=== PATIENT | female | born 1985 | race Caucasian/White ===

== ENCOUNTER 2017-06-03 14:45 | Inpatient (IN) | payer OTHER ==
[~2017-06-03] VITALS: Ht 160 cm; Wt 94.8 kg
--- NOTE | ~2017-06-03 | HP ---
History And Physical [id number] [place]. [address] NAME: HEMANT ANGELES : 87 STATUS : ADM IN PAT#: [id number] AGE: 32 ADM/REG DATE : 06/03/17 MR#: [id number] REPORT SERV DATE: 06/03/17 DICTATED BY: DARREN DOTY DATE: 06/03/17 REPORT STATUS : Draft TRANSCRIBED BY: MODL DATE: 06/03/17 DATE OF ADMISSION: 06/03/2017 IDENTIFYING DATA: A 32-year-old white female, whose PCP is Dr. Radha Archibald; GI, Dr. Alberto Wasserman; steel rigger, Dr. Kathy Corona; delicatessen clerk, Dr. Chen. CHIEF COMPLAINT: Abdominal pain and back pain. HISTORY OF PRESENT ILLNESS: This patient's history of present illness is obtained by talking to the patient and her and the ER provider as well as reviewing [employer] and [employer] and the current ER chart. The patient has had about a week of progressively worsening pain, it is felt in her mid back, radiates around to her epigastric area. It is a little less in the mornings. It is there most of the rest of the day and lasts for many hours. It increases with meals. She denies nausea or vomiting. She went to [facility] reportedly two days ago. She states they did a physical exam and a urinalysis and told her she had muscular strain, gave her some shots, sent her home on generic Toradol and Flexeril. She states it helped a little bit that evening, but the next morning was right back to where she was, so she came to the emergency room here at [facility]. Today, she was found to have evidence for pancreatitis on CT and lab work. She has never had pancreatitis before. Her only recent medication that is new is Imuran, was started a few weeks ago. She does not use alcohol in any significance at all, present or past. No history of gallstones. REVIEW OF SYSTEMS: She has some dry mouth, some chronic diarrhea. She snores. She has no fever, cough, nasal congestion, sore throat, chest pain, shortness of breath, bright red blood per rectum, melena, dysuria, urinary hesitancy, rash, or tick bites. ALLERGIES: NO KNOWN DRUG ALLERGIES. PAST MEDICAL HISTORY: She denies any history of diabetes, stroke, seizure, peptic ulcer or biliary tract disease, liver disease, chronic kidney disease, kidney stones, thyroid disease, or cancer. She has never been tested for sleep apnea. She was diagnosed with ulcerative colitis approximately three or four years ago. She has been on medicines including Lialda and Humira and just not long ago put on Simponi and then Imuran. She also had sarcoid diagnosed in on a biopsy with open thoracoscopy. She was on prednisone for a while, but then was able to come off it. Then a few years ago, she was diagnosed as having myocarditis and suspected to have sarcoid as the cause, no biopsy was done. She does have a history of insulin resistance. History of asthma along with a sarcoid. HOME MEDICATIONS: Azathioprine 100 mg twice a day, budesonide extended release 9 mg daily, History And Physical [address] [address] NAME: HEMANT ANGELES : 87 STATUS : ADM IN [facility]#: [id number] AGE: 32 ADM/REG DATE : 06/03/17 MR#: [id number] REPORT SERV DATE: 06/03/17 DICTATED BY: DARREN DOTY DATE: 06/03/17 REPORT STATUS : Draft TRANSCRIBED BY: ANNIE DATE: 06/03/17 Flexeril 10 mg q.8 hours p.r.n. muscle spasm, Simponi 50 mg subcu every 30 days, and Toradol 10 mg q.6 hours. PAST SURGICAL HISTORY: Thoracoscopy and . SOCIAL HISTORY: She has no tobacco intake history. She has very minimal alcohol intake history. She is . 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 FAMILY HISTORY: Mother with hypothyroidism. Dad, she does not know well, but thinks he had alcoholism and diabetes. She is an only child. DIAGNOSTIC DATA: CT scan of the abdomen and pelvis shows a moderate left-sided hiatal hernia with compressive atelectasis, some calcified granuloma in the right, heart appeared normal. She had some small nonobstructing right upper pole kidney stones, 8 mm complex cyst along the upper pole of the right kidney thought to be a benign hemorrhagic cyst by the radiologist, and a 4 mm cyst along the right kidney. Pancreas was enlarged with mild jamie pancreatic inflammation consistent with acute pancreatitis. No gallstones or bile duct dilatation was noted. A few prominent lymph nodes in the right mesentery, could be reactive lymph node or mesenteric adenitis. Sodium 144, potassium 3.6, chloride 111, CO2 is 25, BUN 22, creatinine 0.76, glucose 126, calcium 2.9, and globulin 4.7. The rest of the CMP was normal. Lipase 2773. Serum test negative. White count 9.6, hemoglobin 11.8, indices normal, and platelets 359,000. Urinalysis: Specific gravity 1.028, protein 30, small amount of leukocyte esterase, and 7 white blood cells. PHYSICAL EXAMINATION: VITAL SIGNS: Temp is 98, pulse 116, respirations 18, blood pressure is 140/70, and O2 saturation is 97% on room air. GENERAL: A well-developed female who appears in moderate pain. HEENT: Head is atraumatic. Pupils are equal, round, and reactive to light. Extraocular motions are intact. No scleral icterus noted. Ear canals and TMs are unremarkable with no inflammatory changes noted externally and normal hearing bilaterally. Nose, noninflamed externally. Septum midline. Nares patent. Mouth is moist. Good gag. No redness of the throat, gums, or lips. No oral ulcers noted. NECK: Supple. No lymph node or thyroid enlargement. The carotids have good pulses. No bruits. LUNGS: Clear. Good air flow, anterior and posteriorly. No wheezes. No rhonchi. Normal respiratory effort. HEART: Tachycardic and regular without gallop, click, murmur, or rub. ABDOMEN: Bowel sounds are positive, but hypoactive. It is soft and nondistended. She has moderate tenderness in the epigastric area. No rebound. Negative Julian sign. No tenderness anywhere else. No bruits. EXTREMITIES: Warm. Good pulses. No clubbing. No cyanosis. No edema. No actively inflamed skin or joints. NEUROLOGIC: Alert, oriented, and cooperative with grossly normal mentation and speech as well as motor and cranial nerves II through XII. ASSESSMENT: History And Physical [address] [place]. [address] NAME: HEMANT ANGELES : 87 STATUS : ADM IN [facility]#: [id number] AGE: 32 ADM/REG DATE : 06/03/17 MR#: [id number] REPORT SERV DATE: 06/03/17 DICTATED BY: ALYSSADARREN HU DATE: 06/03/17 REPORT STATUS : Draft TRANSCRIBED BY: ANNIE DATE: 06/03/17 1. Acute pancreatitis, first episode with the differential diagnosis for the etiology being Imuran versus high triglycerides versus occult gallstones versus sarcoidosis associated pancreatitis versus pancreatic involvement due to underlying ulcerative colitis - less likely. 2. Three or four years of ulcerative colitis. 3. History of biopsy-proven sarcoidosis. 4. History of insulin resistance. PLAN: The patient is being admitted to the Med/Surg floor. We will keep her n.p.o., except clear liquid diet. We will give her some supplemental IV fluids. We will check triglycerides. We will get an ultrasound to check for gallstones. We will consult GI from Dr. Wasserman' group. IV pain medicines and nausea medicines as needed. We are going to hold her Imuran for right now. is updated at the bedside at this time. RSG/ANNIE Darren Doty M.D. / [id number] CC: Darren Doty M.D. Radha Archibald M.D. MD José Miguel Sanchez M.D. Kathy Corona M.D.
--- NOTE | ~2017-06-03 | DS ---
Discharge Summary [id number] [place]. [address] NAME: HEMANT ANGELES : 87 STATUS : DIS IN PAT#: [id number] AGE: 32 ADM/REG DATE : 06/03/17 MR#: [id number] REPORT SERV DATE: 06/06/17 DICTATED BY: JERSON NUGENT DATE: 06/05/17 REPORT STATUS : Draft TRANSCRIBED BY: MODMary DATE: 06/05/17 ADMISSION DATE: 06/03/2017 DISCHARGE DATE: 06/05/2017 DISCHARGE DIAGNOSES: 1. Acute pancreatitis secondary to Imuran use. 2. Ulcerative colitis. 3. History of sarcoidosis. 4. Headaches. 5. Anemia. PERTINENT IMAGING: CT abdomen and pelvis 06/03/2017, impression: Pancreas is enlarged with mild peripancreatic inflammation consistent with pancreatitis. No calcified gallstones or bile duct dilatation. Right kidney upper pole 4 mm and 2 mm nonobstructing stones. There are no left kidney stones. The patient does not have ureteral stones, bladder stones, or hydronephrosis. Borderline and enlarged right mesenteric lymph nodes that may be related to reactive lymph nodes from the pancreatitis or mesenteric adenitis. Clinical correlation is needed. Abdominal ultrasound 06/04/2017, impression: Diffusely prominent pancreas with heterogeneous echogenicity consistent with pancreatitis, nonobstructing right nephrolithiasis and minimal right renal cyst, otherwise negative ultrasound. HOSPITAL COURSE: Please refer to the history and physical dictated by admitting physician for full history of this patient. Briefly, the patient presented predominantly with back pain as well as nausea and vomiting and was found to have a lipase of 2773 on admission. She was started on aggressive IV fluids with pain control and GI was consulted. She did undergo the above imaging that showed evidence of pancreatitis though no evidence of gallstones as it was felt that the most likely etiology of her acute pancreatitis was her Imuran use, and therefore Imuran has been discontinued and listed as an allergy for the patient. On the day of discharge, the patient was found to be tolerating a full liquid diet and per the timber spotter was okay to discharge home with a liquid diet for today and tomorrow with a transition to a soft low-fat diet in the coming days. The patient desires discharge to home and is okay with this plan. She already has followup scheduled with Dr. Wasserman this and she plans to keep this appointment for further discussion. For her ulcerative colitis. There is no sign or symptom of flare. She was continued on her budesonide and will be discharged with followup as above. The patient did have a headache, it sounded somewhat consistent with migraine, but was relieved ultimately with Compazine and Benadryl as well as a one time dose of Excedrin. DISCHARGE MEDICATIONS: Simponi 50 mg subcutaneously every 30 days for GI, budesonide 9 mg p.o. daily, ketorolac 10 mg p.o. every six hours as needed, Flexeril 10 mg p.o. every eight Discharge Summary [address] [address] NAME: HEMANT ANGELES : 87 STATUS : DIS IN PAT#: [id number] AGE: 32 ADM/REG DATE : 06/03/17 MR#: [id number] REPORT SERV DATE: 06/06/17 DICTATED BY: JERSON NUGENT DATE: 06/05/17 REPORT STATUS : Draft TRANSCRIBED BY: ANNIE DATE: 06/05/17 hours p.r.n. FOLLOWUP: As mentioned prior, the patient will be discharged with a liquid diet. She will continue for the next day and tomorrow before advancing her diet to a low-fat diet. She will follow up with Dr. Wasserman this as prior scheduled, and we will continue her home medications with the exception of Imuran which has now been placed on her allergy list. Approximately, 25 minutes were spent coordinating discharge of this patient. KAITLIN/ANNIE Jerson Nugent MD / [id number] CC: MD Radha Singh M.D.
--- NOTE | ~2017-06-03 | CN ---
Consultation Report [facility] [address] [place]. [address] NAME: HEMANT ANGELES : 87 STATUS : ADM IN [facility]#: [id number] AGE: 32 ADM/REG DATE : 06/03/17 MR#: [id number] REPORT SERV DATE: 06/04/17 DICTATED BY: JOSE LOVELL DATE: 06/04/17 REPORT STATUS : Draft TRANSCRIBED BY: MODMary DATE: 06/04/17 DATE OF CONSULTATION: CHIEF COMPLAINT: GI consult regarding abdominal pain and pancreatitis. HISTORY OF PRESENT ILLNESS: This is a 32-year-old woman, patient of Dr. Wasserman who presented to the emergency room with one week of increasing epigastric pain, radiating to back. She has had no significant vomiting but some intermittent nausea. No GERD or dysphagia. Stools have been multiple, loose, and daily but no blood. Intermittent low cramping relieved with bowel movements. She has been treated for ulcerative colitis and has failed Humira as well as Simponi. Entyvio infusions are pending. She has been taking cap Uceris. Imuran was added about three weeks ago. PAST MEDICAL HISTORY: 1. Remarkable for ulcerative colitis, diagnosed three to four years ago. Previous medications listed above include Humira, Simponi, and recently Imuran. She had also been on Lialda. 2. Sarcoidosis diagnosed in 1997 with open thoracoscopy and biopsy. Previous use of prednisone. She also has a history of myocarditis, question sarcoid as the cause. 3. Asthma. ALLERGIES: MEDICATION ALLERGIES NONE. MEDICATIONS: Imuran, Uceris, Flexeril, Simponi, and Toradol. FAMILY HISTORY: Negative for GI malignancy. SOCIAL HISTORY: She does not use alcohol significantly. No tobacco. at the bedside. Family history negative for GI malignancy. REVIEW OF SYSTEMS: A complete review of systems was obtained and negative except that noted in the history of present illness. PHYSICAL EXAMINATION: VITAL SIGNS: She is currently afebrile. Temperature is 98, pulse 92, respirations 16, blood pressure 100/62. HEENT: Sclerae anicteric. Pharynx is pink without exudate. NECK: Supple without lymphadenopathy. LUNGS: Clear to auscultation bilaterally. HEART: Regular rate and rhythm. S1, S2 heard without rubs or gallops. ABDOMEN: Normal bowel sounds. Belly is soft, nontender, and nondistended without hepatosplenomegaly. EXTREMITIES: No pedal edema or rash. NEUROLOGIC: Alert and oriented without focal deficit. Muscle exam is nontender. Consultation Report [facility] [address] [place]. [address] NAME: HEMANT ANGELES : 87 STATUS : ADM IN [facility]#: [id number] AGE: 32 ADM/REG DATE : 06/03/17 MR#: [id number] REPORT SERV DATE: 06/04/17 DICTATED BY: JOSE LOVELL DATE: 06/04/17 REPORT STATUS : Draft TRANSCRIBED BY: MODL DATE: 06/04/17 LABORATORY DATA: White blood cell count 5.3, hematocrit 35.1, MCV 85.4, platelets 340, and INR 1.1. BUN is 13, creatinine 0.53. Liver tests are normal. Lipase 2773. Hemoglobin A1c normal. Urine test negative. Urinalysis negative except small leukocyte esterase. Triglycerides normal. CT scan of the abdomen and pelvis, no duct dilation. Pancreatitis diffusely throughout the pancreas. IMPRESSION: 1. Acute pancreatitis, likely induced by the Imuran. Triglyceride normal, no significant alcohol. Ultrasound pending to look for gallstones. 2. Ulcerative colitis, flare of symptoms. Failure to previous medications including Humira and Simponi. Entyvio pending. RECOMMENDATIONS: 1. Clear liquid diet and IV fluids. 2. Stop Imuran. 3. Continue Uceris. CC/MODL Jose Lovell M.D. / [id number] CC: MD Radha Singh M.D. Gregory Olds, MD
[~2017-06-03 14:45] MED LIST: GLUCPH PO
[2017-06-03 15:35] LABS: ASCORBIC ACID (UR NOT ORDER) NEG (NEG); BILIRUBIN, URINE NEGATIVE (NEG); ER URINALYSIS TAT 0 Hrs 16 Mins; KETONE, URINE NEGATIVE (NEG); LEUKOCYTE ESTERASE(NOT OR SMALL (NEG); NITRITE (URINE) NEG (NEG); WBC (NOT ORDERED) (RFLEX) 7 (0-5)
[2017-06-03 15:48] LABS: BASOPHILS 0.2 %; BASOPHILS ABSOLUTE 0.02 10/3/uL (0.0-0.16); EOSINOPHILS 1.1 %; EOSINOPHILS ABSOLUTE 0.11 10/3/uL (0.0-0.53); ER CBC TAT 0 Hrs 09 Mins; HEMATOCRIT 36.8 % (36.0-48.0); HEMOGLOBIN 11.8 g/dL (12.0-16.0); IMMATURE GRANULOCYTES 0.3 %; IMMATURE GRANULOCYTES ABSOLUTE 0.03 10/3/uL (0.0-0.11); LYMPHOCYTES 9.9 %; LYMPHOCYTES ABSOLUTE 0.95 10/3/uL (0.67-4.30); MEAN CORPUS HGB CONC 32.1 g/dL (32.0-36.0); MEAN CORPUSCULAR HEMOGLOB 27.1 pg (26.0-34.0); MEAN CORPUSCULAR VOLUME 84.4 fL (80-100); MEAN PLATELET VOLUME 9.8 fL (9.2-13.0); MONOCYTES 8.1 %; MONOCYTES ABSOLUTE 0.78 10/3/uL (0.21-1.20); NEUTROPHILS 80.4 %; NEUTROPHILS ABSOLUTE 7.72 10/3/uL (2.02-8.40); PLATELET COUNT 359 10/3/uL (150-400); RBC DISTRIBUTION WIDTH 14.2 % (12.0-16.0); RED CELL COUNT 4.36 10/6/uL (4.0-5.6); WHITE BLOOD CELLS 9.6 10/3/uL (4.5-10.5)
[2017-06-03 15:51] LABS: MANUAL DIFF NO %
[2017-06-03 15:58] LABS: A/G RATIO 0.6 (0.7-1.9); ALBUMIN 2.9 G/DL (3.5-5.0); ALKALINE PHOSPHATASE 58 U/L (45-117); BUN (BLOOD UREA NITROGEN) 22 MG/DL (6-23); CALCIUM, SERUM 8.5 MG/DL (8.5-10.4); CHLORIDE, SERUM 111 MMOL/L (96-112); CO2 (CARBON DIOXIDE) 25 MMOL/L (24-34); CREATININE 0.76 MG/DL (0.55-1.02); GFR AFRICAN AMERICAN 121 ML/MIN (>=60); GFR NON AFRICAN AMERICAN 105 ML/MIN (>=60); GLOBULIN 4.7 G/DL (2.5-4.1); GLUCOSE, SERUM 126 MG/DL (60-99); POTASSIUM, SERUM 3.6 MMOL/L (3.5-5.3); SGOT(AST) 12 U/L (5-40); SGPT(ALT) 15 U/L (5-65); SODIUM, SERUM 144 MMOL/L (135-148); TOTAL BILIRUBIN 0.2 MG/DL (0-1.2); TOTAL PROTEIN 7.6 G/DL (6.0-8.5)
[2017-06-03] MEDS ORDERED: TORATAB PO (16:58)
[2017-06-03] MEDS ORDERED: UCERIS9 MG PO (16:59)
[2017-06-03] MEDS ORDERED: SIMPONI50 MG SC (16:59)
[2017-06-03] MEDS ORDERED: FLEX PO (16:59)
[2017-06-03] MEDS ORDERED: IMU PO (16:59)
[2017-06-03 21:17] LABS: INTERNATIONAL NORMAL RATI 1.1 UNITS (-); PARTIAL THROMBO TIME 28.7 SEC (22.5-37.2); PROTIME (NOT ORD) 14.5 SEC (12.0-14.5)
[2017-06-04 07:15] LABS: BASOPHILS 0.8 %; BASOPHILS ABSOLUTE 0.04 10/3/uL (0.0-0.16); EOSINOPHILS 5.1 %; EOSINOPHILS ABSOLUTE 0.27 10/3/uL (0.0-0.53); HEMATOCRIT 35.1 % (36.0-48.0); HEMOGLOBIN 10.9 g/dL (12.0-16.0); IMMATURE GRANULOCYTES 0.4 %; IMMATURE GRANULOCYTES ABSOLUTE 0.02 10/3/uL (0.0-0.11); LYMPHOCYTES 27.2 %; LYMPHOCYTES ABSOLUTE 1.45 10/3/uL (0.67-4.30); MEAN CORPUS HGB CONC 31.1 g/dL (32.0-36.0); MEAN CORPUSCULAR HEMOGLOB 26.5 pg (26.0-34.0); MEAN CORPUSCULAR VOLUME 85.4 fL (80-100); MEAN PLATELET VOLUME 9.9 fL (9.2-13.0); MONOCYTES 10.1 %; MONOCYTES ABSOLUTE 0.54 10/3/uL (0.21-1.20); NEUTROPHILS 56.4 %; NEUTROPHILS ABSOLUTE 3.01 10/3/uL (2.02-8.40); PLATELET COUNT 340 10/3/uL (150-400); RBC DISTRIBUTION WIDTH 14.4 % (12.0-16.0); RED CELL COUNT 4.11 10/6/uL (4.0-5.6)
[2017-06-04 07:16] LABS: MANUAL DIFF NO %; WHITE BLOOD CELLS 5.3 10/3/uL (4.5-10.5)
[2017-06-04 07:29] LABS: A/G RATIO 0.6 (0.7-1.9); ALBUMIN 2.4 G/DL (3.5-5.0); ALKALINE PHOSPHATASE 52 U/L (45-117); BUN (BLOOD UREA NITROGEN) 13 MG/DL (6-23); CHLORIDE, SERUM 109 MMOL/L (96-112); CHOL/HDL RATIO(NOT ORDER) 3.6 (0-5); CHOLESTEROL 118 MG/DL (< 200); CO2 (CARBON DIOXIDE) 25 MMOL/L (24-34); CREATININE 0.53 MG/DL (0.55-1.02); GFR AFRICAN AMERICAN 147 ML/MIN (>=60); GFR NON AFRICAN AMERICAN 127 ML/MIN (>=60); GLUCOSE, SERUM 92 MG/DL (60-99); HDL CHOLESTEROL 33 MG/DL (> 49); LDL CHOLESTEROL 72 MG/DL (< 130); NON-HDL CHOLESTEROL 85 MG/DL (< 160); SGOT(AST) 11 U/L (5-40); SGPT(ALT) 13 U/L (5-65); SODIUM, SERUM 142 MMOL/L (135-148); TOTAL BILIRUBIN 0.3 MG/DL (0-1.2); TOTAL PROTEIN 6.4 G/DL (6.0-8.5); TRIGLYCERIDE 69 MG/DL (< 150)
[2017-06-05 07:04] LABS: BASOPHILS 0.6 %; BASOPHILS ABSOLUTE 0.03 10/3/uL (0.0-0.16); HEMOGLOBIN 10.1 g/dL (12.0-16.0); IMMATURE GRANULOCYTES 0.6 %; IMMATURE GRANULOCYTES ABSOLUTE 0.03 10/3/uL (0.0-0.11); LYMPHOCYTES 29.8 %; MEAN CORPUS HGB CONC 32.1 g/dL (32.0-36.0); MEAN CORPUSCULAR VOLUME 84.2 fL (80-100); MEAN PLATELET VOLUME 10.3 fL (9.2-13.0); MONOCYTES 9.7 %; MONOCYTES ABSOLUTE 0.49 10/3/uL (0.21-1.20); NEUTROPHILS 57.3 %; NEUTROPHILS ABSOLUTE 2.89 10/3/uL (2.02-8.40); PLATELET COUNT 287 10/3/uL (150-400); RBC DISTRIBUTION WIDTH 14.1 % (12.0-16.0); RED CELL COUNT 3.74 10/6/uL (4.0-5.6)
[2017-06-05 07:06] LABS: HEMATOCRIT 31.5 % (36.0-48.0)
[2017-06-05 07:07] LABS: MANUAL DIFF NO %
[2017-06-05 07:15] LABS: CALCIUM, SERUM 8.2 MG/DL (8.5-10.4); CHLORIDE, SERUM 109 MMOL/L (96-112); CO2 (CARBON DIOXIDE) 24 MMOL/L (24-34); CREATININE 0.54 MG/DL (0.55-1.02); GFR AFRICAN AMERICAN 146 ML/MIN (>=60); GFR NON AFRICAN AMERICAN 126 ML/MIN (>=60); GLUCOSE, SERUM 102 MG/DL (60-99); POTASSIUM, SERUM 4.1 MMOL/L (3.5-5.3); SODIUM, SERUM 142 MMOL/L (135-148)
[2017-06-05 07:16] LABS: BUN (BLOOD UREA NITROGEN) 7 MG/DL (6-23)
== END 2017-06-05 13:34 | disposition home or self-care (01) | DRG 439 ==
LOC: ER 14:45 → 5SO 17:49
PROVIDERS: Hospitalist; Internal Medicine; Physician Assistant
DX: K85.30 Drug induced acute pancreatitis without necrosis or infection (principal); K51.90 Ulcerative colitis, unspecified, without complications; D86.9 Sarcoidosis, unspecified; T45.1X5A Adverse effect of antineoplastic and immunosuppressive drugs, initial encounter; Y92.89 Other specified places as the place of occurrence of the external cause; D64.9 Anemia, unspecified; R51 Headache
CPT/HCPCS: 74176; 76700; 80048; 80053; 80061; 81001; 83036; 83690; 83735; 84703; 85025; 85610; 85730; 87086; 93005; 96374; 99285; A9270-GY; J0780; J1170; J1200; J2405; J3480